=== PATIENT | female | born 2000 | race Caucasian/White ===

== ENCOUNTER 2022-11-25 11:36 | Emergency (ER) | payer OTHER, SELFPAY ==
[2022-11-25] MEDS ORDERED: Acetaminophen 500 MG TAB ONE (12:08)
== END 2022-11-25 12:55 | disposition home or self-care (01) ==
LOC: NAV ERS 11:36
DX: S93.402A Sprain of unspecified ligament of left ankle, initial encounter (principal); S00.03XA Contusion of scalp, initial encounter; S00.83XA Contusion of other part of head, initial encounter; F07.81 Postconcussional syndrome; F17.290 Nicotine dependence, other tobacco product, uncomplicated; Y04.0XXA Assault by unarmed brawl or fight, initial encounter
CPT/HCPCS: 70450; 70486